=== PATIENT | male | born 1990 | race African-American/Black ===

== ENCOUNTER 2020-02-15 00:16 | Emergency (ER) | payer SELFPAY ==
[~2020-02-15] VITALS: Ht 175.2 cm; Wt 77.1 kg
== END 2020-02-15 01:37 | disposition home or self-care (01) ==
LOC: ED 00:16
DX: K08.89 Other specified disorders of teeth and supporting structures (principal); J45.909 Unspecified asthma, uncomplicated

== ENCOUNTER 2022-10-02 12:55 | Emergency (ER) | payer OTHER ==
[~2022-10-02] VITALS: Ht 175.2 cm; Wt 81.6 kg
[2022-10-02] MEDS ORDERED: VIBRAMYCIN100 MG PO (13:27)
[2022-10-02 13:51] LABS: BILIRUBIN Negative (Negative); BLOOD Negative (Negative); CLARITY Clear (Clear); COLOR Yellow (Yellow); GLUCOSE Negative (Negative); KETONE Trace (Negative); LEUKO ESTERASE 2+ (Negative); NITRITE Negative (Negative); SPECIFIC GRAVITY 1.015 (1.001-1.030)
[2022-10-02 14:04] LABS: BACTERIA 1+; EPITHELIAL CELLS 0-2; WBC 41-50 wbc/hpf (0-5)
== END 2022-10-02 13:40 | disposition home or self-care (01) ==
LOC: ED 12:55
PROVIDERS: Nurse Practitioner Family
DX: A54.9 Gonococcal infection, unspecified (principal); A74.9 Chlamydial infection, unspecified; A59.9 Trichomoniasis, unspecified; J45.909 Unspecified asthma, uncomplicated

== ENCOUNTER 2023-03-05 13:32 | Emergency (ER) | payer OTHER ==
[~2023-03-05] VITALS: Ht 175.2 cm; Wt 81.6 kg
[~2023-03-05 13:32] MED LIST: VIBRAMYCIN100 MG PO
== END 2023-03-05 19:16 | disposition home or self-care (01) ==
LOC: ED 13:32
DX: S16.1XXA Strain of muscle, fascia and tendon at neck level, initial encounter (principal); S60.221A Contusion of right hand, initial encounter; J45.909 Unspecified asthma, uncomplicated; F17.290 Nicotine dependence, other tobacco product, uncomplicated; V89.2XXA Person injured in unspecified motor-vehicle accident, traffic, initial encounter; Y93.89 Activity, other specified; Y92.410 Unspecified street and highway as the place of occurrence of the external cause; Y99.8 Other external cause status

== ENCOUNTER 2023-05-28 06:00 | Emergency (ER) | payer OTHER ==
[~2023-05-28] VITALS: Ht 175.2 cm; Wt 80.7 kg
== END 2023-05-28 06:35 | disposition home or self-care (01) ==
LOC: ED 06:00
DX: A63.0 Anogenital (venereal) warts (principal)